=== PATIENT | male | born 1990 | race Caucasian/White ===

== ENCOUNTER 2017-07-05 18:02 | Emergency (ER) | payer BC ==
--- NOTE | 2017-07-05 18:09 | PDOC ---
History of Present Illness - General History Source: Patient Exam Limitations: No Limitations - History of Present Illness Initial Comments: 07/05/17 18:17 The patient is a 26 year old male, with no significant past medical history, who presents to the emergency department complaining of shortness of breath for approximately 5 days. The patient reports he began to feel short of breath 5 days ago after smoking a cigarette. Patient reports an associated dry cough, but denies any fever, chills, headache, or dizziness. He states he thought the cough and shortness of breath was brought on by his smoking, so he stopped smoking for the past couple of days. Patient reports his SOB persists, to the point where his girlfriend woke him up yesterday in the middle of the night asking if he was okay because he was choking and was gasping for air. Patient denies any history of asthma, however he does report using an inhaler 3 years ago for similar symptoms. He denies any chest pain, diaphoresis, palpitations, or lower extremity edema. He denies any strenuous activity, recent travel or sick contacts. Allergies: [[place]] Past Surgical History: None reported. Social History: Current everyday smoker. No ETOH or drug use reported. <Demetrio Barron - Last Filed: 07/05/17 18:17> <Jose Chavez - Last Filed: 07/05/17 18:33> - General Chief Complaint: Respiratory Stated Complaint: SHORT OF BREATH AT TIMES Time Seen by Provider: 07/05/17 18:08 Past History <Demetrio Barron - Last Filed: 07/05/17 18:17> - Immunization History Td Vaccination: Yes Immunization Up to Date: Yes - Psycho/Social/Smoking Cessation Hx Anxiety: No Suicidal Ideation: No Smoking Status: No Smoking History: Current some day smoker Number of Cigarettes Smoked Daily: 10 <Jose Chavez - Last Filed: 07/05/17 18:33> - Past Medical History Allergies/Adverse Reactions: Allergies Allergy/AdvReac Type Severity Reaction Status Date / Time SECOR Allergy Unknown Uncoded 07/05/17 18:03 Home Medications: Ambulatory Orders Albuterol Sulfate Inhaler - [Ventolin HFA Inhaler -] 2 inh PO Q6H #1 inh Azithromycin [Zithromax -] 250 mg PO UTDICT #6 tab 07/05/17 Prednisone 20 mg PO BID #20 tab.ds.pk 07/05/17 Review of Systems - Review of Systems Able to Perform ROS?: Yes Comments:: 07/05/17 18:17 GENERAL/CONSTITUTIONAL: No fever or chills. No weakness. HEAD, EYES, EARS, NOSE AND THROAT: No change in vision. No ear pain or discharge. No sore throat. CARDIOVASCULAR: Yes: +shortness of breath. No chest pain. RESPIRATORY: Yes: +cough. No wheezing, or hemoptysis. GASTROINTESTINAL: No nausea, vomiting, diarrhea or constipation. GENITOURINARY: No dysuria, frequency, or change in urination. MUSCULOSKELETAL: No joint or muscle swelling or pain. No neck or back pain. SKIN: No rash NEUROLOGIC: No headache, vertigo, loss of consciousness, or change in strength/ sensation. ENDOCRINE: No increased thirst. No abnormal weight change. HEMATOLOGIC/LYMPHATIC: No anemia, easy bleeding, or history of blood clots. ALLERGIC/IMMUNOLOGIC: No hives or skin allergy. <Demetrio Barron - Last Filed: 07/05/17 18:17> *Physical Exam - Vital Signs Last Vital Signs Temp Pulse Resp BP Pulse Ox 98 F 82 16 149/81 100 07/05/17 18:03 07/05/17 18:03 07/05/17 18:03 07/05/17 18:03 07/05/17 18:03 - Physical Exam Comments: 07/05/17 18:18 GENERAL: Awake, alert, and fully oriented, in no acute distress HEAD: No signs of trauma EYES: PERRLA, EOMI, sclera anicteric, conjunctiva clear ENT: Auricles normal inspection, hearing grossly normal, nares patent, oropharynx clear without exudates. Moist mucosa NECK: Normal ROM, supple, no lymphadenopathy, JVD, or masses LUNGS: Breath sounds equal, clear to auscultation bilaterally. No wheezes, and no crackles HEART: Regular rate and rhythm, normal S1 and S2, no murmurs, rubs or gallops ABDOMEN: Soft, nontender, normoactive bowel sounds. No guarding, no rebound. No masses EXTREMITIES: Normal range of motion, no edema. No clubbing or cyanosis. No cords, erythema, or tenderness. No calf tenderness. NEUROLOGICAL: Cranial nerves II through XII grossly intact. Normal speech, normal gait SKIN: Warm, Dry, normal turgor, no rashes or lesions noted. <Demetrio Barron - Last Filed: 07/05/17 18:17> Progress Note - Progress Note Progress Note: Pt denies chest pain. Vitals stable. Pt appears to have an asthmatic bronchitis Will place on Z-pack, Prednisone and inhaler If worsen return to ER Pt is in agreement with plan No sign of PE or COPD. Pt resting comfortably <Jose Chavez - Last Filed: 07/05/17 18:33> *DC/Admit/Observation/Transfer - Attestations Scribe Attestion: 07/05/17 18:19 Documentation prepared by Demetrio Barron, acting as medical resident for Jose Chavez MD. <Demetrio Barron - Last Filed: 07/05/17 18:17> - Discharge Dispostion Admit: No <Jose Chavez - Last Filed: 07/05/17 18:33> Diagnosis at time of Disposition: Asthmatic bronchitis Qualifiers: Asthma severity: mild intermittent Asthma complication type: with acute exacerbation Qualified Code(s): J45.21 - Mild intermittent asthma with (acute) exacerbation - Discharge Dispostion Disposition: HOME Condition at time of disposition: Stable - Patient Instructions Printed Discharge Instructions: DI for Acute Bronchitis, DI for Asthma -- Adult Additional Instructions: Z-pack as directed Prednisone 20 mg 2x/day for 5 days Albuterol MDI 2 puffs 4x/day as needed Stop smoking If worsen return to ER
[2017-07-05 18:16] VITALS: BP 149/81; PULSE 82; TEMP 98; BMI 43.3
== END 2017-07-05 18:48 | disposition home or self-care (01) ==
LOC: FER 18:02
DX: J45.21 Mild intermittent asthma with (acute) exacerbation (principal)
CPT/HCPCS: 99281-25

== ENCOUNTER 2017-07-11 00:10 | Emergency (ER) | payer BC ==
[2017-07-11 00:27] VITALS: BP 138/77; TEMP 97.7; BMI 43.3
--- NOTE | 2017-07-11 00:41 | PDOC ---
History of Present Illness - General Chief Complaint: Respiratory Stated Complaint: BREATHING PROBLEMS Past History - Travel Traveled outside of the country in the last 30 days: No Close contact w/someone who was outside of country & ill: No - Past Medical History Allergies/Adverse Reactions: Allergies Allergy/AdvReac Type Severity Reaction Status Date / Time SECOR Allergy Unknown Uncoded 07/05/17 18:03 Home Medications: Ambulatory Orders Albuterol Sulfate Inhaler - [Ventolin HFA Inhaler -] 2 inh PO Q6H #1 inh Prednisone 20 mg PO BID #20 tab.ds.pk 07/05/17 GI Disorders: Yes (ESOPHAGITIS) - Immunization History Td Vaccination: Yes Immunization Up to Date: Yes - Psycho/Social/Smoking Cessation Hx Anxiety: No Suicidal Ideation: No Smoking Status: No Smoking History: Never smoked Have you smoked in the past 12 months: Yes Number of Cigarettes Smoked Daily: 10 'Breaking Loose' booklet given: 07/05/17 Hx Alcohol Use: Yes (SOCIAL) Drug/Substance Use Hx: No Substance Use Type: Alcohol Review of Systems - Review of Systems Constitutional: No: Symptoms Reported, See HPI, Chills, Diaphoresis, Fever, Loss of Appetite, Malaise, Night Sweats, Weakness, Weight Stable, Unintentional Wgt. Loss, Unexplained wgt Loss, Other HEENTM: No: Symptoms Reported, See HPI, Eye Pain, Blurred Vision, Tearing, Recent change in vision, Double Vision, Cataracts, Ear Pain, Ocular Prothesis, Ear Discharge, Nose Pain, Nose Congestion, Tinnitus, Nose Bleeding, Hearing Loss , Throat Pain, Throat Swelling, Mouth Pain, Dental Problems, Difficulty Swallowing, Mouth Swelling, Other Respiratory: Yes: Shortness of Breath. No: Symptoms reported, See HPI, Cough, Orthopnea, SOB with Exertion, SOB at Rest, Stridor, Wheezing, Productive cough, Hemoptysis, Other Cardiac (ROS): No: Symptoms Reported, See HPI, Chest Pain, Edema, Irregular Heart Rate, Lightheadedness, Palpitations, Syncope, Chest Tightness, Other ABD/GI: No: Symptoms Reported, See HPI, Abdominal Distended, Abd. Pain w/ defecation, Blood Streaked Bowels, Constipated, Diarrhea, Difficulty Swallowing , Nausea, Poor Appetite, Poor Fluid Intake, Rectal Bleeding, Vomiting, Indigestion, Abdominal cramping, Tarry Stools, Other : Yes: Frequency Musculoskeletal: No: Symptoms Reported, See HPI, Back Pain, Gout, Joint Pain, Joint Swelling, Muscle Pain, Muscle Weakness, Neck Pain, Joint Stiffness, Other Integumentary: No: Symptoms Reported, See HPI, Bruising, Change in Color, Change in Hair/Nails, Dryness, Erythema, Flushing, Lesions, Lumps, Pallor, Pruritus, Rash, Sweating, Other Neurological: No: Symptoms reported, See HPI, Headache, Numbness, Paresthesia, Pre-Existing Deficit, Seizure, Tingling, Tremors, Weakness, Unsteady Gait, Ataxia, Dizziness, Other Psychiatric: No: Anxiety, Depression, Frequent Crying, Stressors, Sleep Pattern Change, Emotional Problems, Mood Swings, Change in Appetite, Other Endocrine: No: Symptoms Reported, See HPI, Excessive Sweating, Flushing, Intolerance to Cold, Intolerance to Heat, Increased Hunger, Increased Thirst, Increased Urine, Unexplained Weight Gain, Unexplained Weight Loss, Change in Weight, Other *Physical Exam - Vital Signs Last Vital Signs Temp Pulse Resp BP Pulse Ox 97.7 F 85 18 138/77 98 07/11/17 00:24 07/11/17 00:24 07/11/17 00:24 07/11/17 00:07/11/17 00:24 - Physical Exam General Appearance: Yes: Appropriately Dressed, Obese HEENT: positive: EOMI, TYLER, Normal ENT Inspection, Normal Voice, Symmetrical, TMs Normal, Pharynx Normal Neck: positive: Trachea midline, Normal Thyroid, Supple Respiratory/Chest: positive: Lungs Clear, Normal Breath Sounds, Accessory Muscle Use. negative: Decreased Breath Sounds, Paradoxal Breathing, Crackles, Rales, Stridor, Wheezing, Hyperresonant, Dullness, Plerual Rub Cardiovascular: positive: Regular Rhythm, Regular Rate, S1, S2. negative: Edema , Murmur, Bradycardia, Tachycardia, Diastolic Murmur, Systolic Murmur, Gallop/S3 , Gallop/S4, Irregularly Irregular, Irregular Gastrointestinal/Abdominal: positive: Normal Bowel Sounds, Soft. negative: Tender, Flat, Organomegaly, Pulsatile Mass, Increased Bowel Sounds, Decreased BS , Protuberent, Distended, Guarding, Rebound, Tenderness, Hernia, Mass, Hepatomegaly, Spleenomegaly, Other Musculoskeletal: positive: Normal Inspection. negative: CVA Tenderness, CVA Tenderness (R), CVA Tenderness (L), Decreased Range of Motion, Muscle Spasm, Vertebral Tenderness, Other Extremity: positive: Normal Capillary Refill, Normal Inspection, Tender, Pelvis Stable, Cyanosis (? cyanosis; pt reports it at home; here he appears normal color; however for this reason I considered methemoglobinemia) Integumentary: positive: Normal Color, Dry, Warm. 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 negative: Abnormal Cranial NS, Respond to painful stimul, Responsive, EOM Palsy, Facial Droop, Numbness, Sensory Deficit, Finger to Nose, Confused, Disoriented, Depressed Affect, Babinski, Other ED Treatment Course - LABORATORY CBC & Chemistry Diagram: 07/11/17 02:00 07/11/17 02:00 Medical Decision Making - Medical Decision Making 07/11/17 02:24 Pt is morbidly obese and comes with SOB and states that he was here last week and treated with asthma meds and abx with no relief. He had no labs and no imaging studies. Today XR appears to show increased interstitial markings, but his breath sounds are clear and his pulsox is normal on Room air. Pt has no fever and no chills. He is a smoker, but states that he has not been smoking for the past week. Pt has no PMHx and he states that he saw his hands to be blue appearing. Pt will be checked for basic labs and we will consider methemoglobinemia 07/11/17 05:04 Pt's WBC is high, but I believe it is due to the fact that pt has been taking steroids for the past 5 days. CXR looks clear, Pt feels better, O2 on room air is 98-99% Pt has appt with his PMD on wednesday. *DC/Admit/Observation/Transfer Diagnosis at time of Disposition: Dyspnea - Discharge Dispostion Disposition: HOME Condition at time of disposition: Improved Admit: No - Referrals Referrals: Anya James MD [Primary Care Provider] - - Patient Instructions Printed Discharge Instructions: DI for Shortness of Breath
[2017-07-11] MEDS ORDERED: ALBUTEROL SO4 2.5/IPRATROPIUM 0.5 INH SOL 3 ML VIAL.NEB. NEB ONE (00:43)
[2017-07-11] MEDS ORDERED: ALBUTEROL SO4 0.083% IH SOL 2.5 MG/3 ML VIAL.NEB. NEB ONE (00:44)
[2017-07-11 02:02] VITALS: PULSE 86
[2017-07-11 02:39] LABS: BASOPHIL 0.4 % (0-2.0); EOSINOPHIL 0.4 % (0-4.5); MCH 30.6 pg (25.7-33.7); MCHC 34.7 g/dl (32.0-35.9); MEAN CELL VOLUME 88.1 fl (80-96); MEAN PLT VOLUME 7.7 fl (7.5-11.1); NEUTROPHILS 52.2 % (42.8-82.8); PLATELET COUNT 280 K/MM3 (134-434); RDW 12.8 % (11.9-15.9); WHITE BLOOD COUNT 12.3 K/mm3 (4.0-10.0)
[2017-07-11 03:07] LABS: ALBUMIN 3.9 g/dl (3.4-5.0); ANION GAP 10 (8-16); BILIRUBIN,TOTAL 0.4 mg/dL (0.2-1.0); CALCIUM 8.9 mg/dL (8.5-10.1); CO2 27 mmol/L (21-32); GLUCOSE,RANDOM 133 mg/dL (74-106); LDH 172 U/L (87-241); SGOT/AST 17 U/L (15-37); SGPT/ALT 64 U/L (12-78); TOT PROT 7.1 g/dl (6.4-8.2)
[2017-07-11 03:10] LABS: ALK PHOS 57 U/L (45-117); CPK 80 IU/L (39-308); TROPONIN I < 0.02 ng/ml (0.00-0.05)
[2017-07-11] MEDS ORDERED: DOXYCYCLINE INJECTION 100 MG in DEXTROSE 5%-WATER - 150 ML IVPB ONE (03:28)
[2017-07-11] MEDS ORDERED: DOXYCYCLINE HYCLATE 100 MG VIAL ONE (03:46)
--- NOTE | 2017-07-13 10:29 | EKG ---
Test Reason : Blood Pressure : / mmHG Vent. Rate : 077 BPM Atrial Rate : 077 BPM P-R Int : 152 ms QRS Dur : 086 ms QT Int : 366 ms P-R-T Axes : 022 004 013 degrees QTc Int : 414 ms NORMAL SINUS RHYTHM INFERIOR INFARCT , AGE UNDETERMINED NO PREVIOUS ECGS AVAILABLE Confirmed by MD HERNANDEZ MARJORY ([id number]) on 07/13/2017 10:29:38 AM Referred By: MD COBB Confirmed By:DADA HERNANDEZ MD
== END 2017-07-11 04:18 | disposition home or self-care (01) ==
LOC: FER 00:10
DX: R06.00 Dyspnea, unspecified (principal); E66.01 Morbid (severe) obesity due to excess calories; Z68.41 Body mass index [BMI] 40.0-44.9, adult
CPT/HCPCS: 36415; 71020-TC; 80053; 83615; 84484; 85025; 85044; 93005; 99282-25

== ENCOUNTER 2020-11-30 21:48 | Emergency (ER) | payer BC, OTHER ==
[2020-11-30 22:02] VITALS: BP 142/82; PULSE 88; TEMP 98.9; BMI 43.9
== END 2020-11-30 23:28 | disposition home or self-care (01) ==
LOC: FER 21:48
DX: S39.012A Strain of muscle, fascia and tendon of lower back, initial encounter (principal)
CPT/HCPCS: 74176-TC; 81003; 99284-25